=== PATIENT | male | born 1975 | race Caucasian/White ===

== ENCOUNTER 2019-12-25 06:15 | Emergency (ER) | payer BC ==
[2019-12-25 06:29] VITALS: BP 135/91; PULSE 87
--- NOTE | 2019-12-25 06:32 | EDM.PDOC ---
<Merle Valencia - Last Filed: 12/25/19 06:29> ED HPI GENERAL MEDICAL PROBLEM - General Chief Complaint: Lower Extremity Injury/Pain Stated Complaint: [id number] BROKE LEFT ANKLE Time Seen by Provider: 12/25/19 06:25 Source of Information: Reports: Patient, RN, RN Notes Reviewed History Limitations: Reports: No Limitations - History of Present Illness INITIAL COMMENTS - FREE TEXT/NARRATIVE: Patient presents to ER with complaint of left foot pain. States he stepped in a gopher hole last night and twisted/rolled the ankle or foot. There is a small hematoma, ecchymosis to the lateral portion of the left foot. CMS intact. Onset: Sudden Left Foot Pain Score (Numeric/FACES): 2 - Related Data Allergies Allergy/AdvReac Type Severity Reaction Status Date / Time No Known Allergies Allergy Verified 12/25/19 06:29 Home Meds: Home Meds . [No Known Home Meds] 03/07/14 [History] Past Medical History - Past Health History Medical/Surgical History: Denies Medical/Surgical History HEENT History: Reports: None Cardiovascular History: Reports: None Respiratory History: Reports: None Gastrointestinal History: Reports: None Genitourinary History: Reports: None Musculoskeletal History: Reports: None Neurological History: Reports: None Psychiatric History: Reports: None Endocrine/Metabolic History: Reports: None Hematologic History: Reports: None Immunologic History: Reports: None Oncologic (Cancer) History: Reports: None Dermatologic History: Reports: None - Infectious Disease History Infectious Disease History: Reports: Chicken Pox - Past Surgical History HEENT Surgical History: Reports: Other (See Below) Musculoskeletal Surgical History: Reports: Shoulder Surgery Social & Family History - Tobacco Use Smoking Status *Q: Never Smoker Second Hand Smoke Exposure: No - Caffeine Use Caffeine Use: Reports: Coffee - Recreational Drug Use Recreational Drug Use: No Review of Systems - Review of Systems Review Of Systems: Comprehensive ROS is negative, except as noted in HPI. ED EXAM, GENERAL - Physical Exam Exam: See Below Exam Limited By: No Limitations General Appearance: Alert, WD/WN, No Apparent Distress Eye Exam: Bilateral Eye: EOMI, Normal Inspection Ears: Normal External Exam, Hearing Grossly Normal Nose: Normal Inspection Throat/Mouth: Normal Inspection, Normal Voice, No Airway Compromise Head: Atraumatic, Normocephalic Neck: Normal Inspection, Supple, Non-Tender, Full Range of Motion Respiratory/Chest: No Respiratory Distress, Lungs Clear, No Accessory Muscle Use, Chest Non-Tender, Decreased Breath Sounds Cardiovascular: Normal Peripheral Pulses, Regular Rate, Rhythm, No Edema, No Gallop, No JVD, No Murmur, No Rub Peripheral Pulses: 2+: Radial (L), Radial (R), Dorsalis Pedis (L), Dorsalis Pedis (R) GI/Abdominal: Normal Bowel Sounds, Soft, Non-Tender (Male) Exam: Deferred Rectal (Males) Exam: Deferred Back Exam: Normal Inspection, Full Range of Motion, NT Extremities: Non-Tender, Normal Capillary Refill, Limited Range of Motion (left foot/ankle), Other (hematoma/ecchymosis to lateral left foot) Neurological: Alert, Oriented, CN II-XII Intact, Normal Cognition, Normal Reflexes, No Motor/Sensory Deficits Psychiatric: Normal Affect, Normal Mood Skin Exam: Warm, Dry, Intact, Normal Color, No Rash, Ecchymosis (top/lateral left foot) Lymphatic: No Adenopathy Departure - Departure Disposition: Home, Self-Care 01 Clinical Impression: Left ankle sprain Qualifiers: Encounter type: initial encounter Involved ligament of ankle: unspecified ligament Qualified Code(s): S93.402A - Sprain of unspecified ligament of left ankle, initial encounter - Discharge Information Instructions: How to Use a Stirrup Ankle Brace, [id number], How to Use Cold Therapy, [id number], Pain Medicine Instructions, [id number] Referrals: PCP,Not In Area [Primary Care Provider] - Forms: ED Department Discharge Additional Instructions: Apply ice every 20 minutes/hour while awake. take Ibuprofen 600 mg every 8 hours with meals as needed for pain. Elevated left ankle when sitting or lying down. Follow up with your PCP if symptoms do not improve in two weeks. Sepsis Event Note (ED) - Evaluation Sepsis Screening Result: No Definite Risk <Gunnar Bernard - Last Filed: 12/25/19 09:53> Course - Vital Signs Last Recorded V/S: Last Vital Signs Temp 98.4 F 12/25/19 06:24 Pulse 87 12/25/19 06:24 Resp 19 12/25/19 06:24 BP 135/91 H 12/25/19 06:24 Pulse Ox 99 12/25/19 06:24 - Re-Assessments/Exams Free Text/Narrative Re-Assessment/Exam: 12/25/19 07:50 Ice applied to left ankle. Reviewed Xray results with patient. Airform ankle splint applied. Instructions included on AVS. Departure - Departure Time of Disposition: 07:52 Condition: Good Sepsis Event Note (ED) - Focused Exam Vital Signs: Vital Signs Temp Pulse Resp BP Pulse Ox 12/25/19 06:24 98.4 F 87 19 135/91 H 99
--- NOTE | 2019-12-25 07:00 | CR ---
PROCEDURE INFORMATION: Exam: XR Left Foot Complete Exam date and time: 12/25/2019 6:36 AM Age: 44 years old Clinical indication: Injury or trauma; Fall; Initial encounter; Sprain or strain; Ankle; Left; Additional info: Rolled ankle in gofer hole TECHNIQUE: Imaging protocol: XR Left foot. Views: 3 or more views. COMPARISON: No relevant prior studies available. FINDINGS: Bones/joints: Moderate plantar calcaneal spur. Mild marginal spurs of the head of the 1st metatarsal and slight narrowing of the medial aspect of the 1st MTP joint indicating degenerative disease. No fracture or dislocation. Soft tissues: Mild soft tissue swelling anterior to the ankle joint. Possible developing medial bunion. IMPRESSION: No acute fracture.
== END 2019-12-25 08:32 | disposition home or self-care (01) ==
LOC: DL.ED 06:15
DX: S93.402A Sprain of unspecified ligament of left ankle, initial encounter (principal); X50.1XXA Overexertion from prolonged static or awkward postures, initial encounter
CPT/HCPCS: 73630-LT; 99283-25